=== PATIENT | female | born 1980 ===

== ENCOUNTER 2017-02-27 11:42 | Emergency (ER) | payer MEDICAID ==
--- NOTE | 2017-03-01 04:56 | OBHP ---
Datetime: 02/27/2017 13:00 IP Adm Impression: Postterm, intrauterine ; No Active Labor; Intact Membranes IP Admit Plan: Discharge home Admit Comment, IP Provider: 36 y.o. P0, LMP unsure, WILIAM 02/26/17, EGA 40w 1d, confirmed by sono at 12w 5d referred for evaluation. (+) AFM; denies LOF, VB, Ctx. Last had sexual intercourse 1 week ago. care = [facility] - ; last visit 02/26/17. issues. 1) advanced maternal ag e - declined aniocentesis. 2) Abnl 1 hr GCT = 172 mg/dL; per chart "3hr GTT normal". 3) (+) headaches - onset this . (+) eyewear; doesn't recall last eye exam. Didn't keep appt made for medical evaluation of same. 4) Chart review reveals intermittent feelings of depression/sadness; pt did not keep appt with behavioural health after requesting it. 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 Denies STIs or abnl Pap PMH: denies PSH: denies NKDA Meds: PNV Soc Hx: former tobacco use: 3 cig/day x 15 years; stopped in . Denies illicit drug or EtO H use. Relationship with FOB is on again/off again. Fam Hx: Mother alive 55 - no med issues. Father alive HTN; S/P CVA. Denies fam h/o cancer P.E.: as above. WD in NAD. Awake, alert, oriented to time, person and place. Pleasant and cooperat lauryn. Became a littly evasive when asked about the nature of relationship with FOB. Assessment: 36 yo P0, 40w 1d, not in labor. NST reactive; Category 1 tracing. Patient is scheduled for IOL 03/04/17. Has appointment 03/03. Clinically stable. Plan: 1) Discharge home 2) Reviewed S/S labor 3) Keep all scheduled appointments Pelvic Type - PN: Adequate Extremities - PN: Normal Abdomen - PN: Normal Back - PN: Normal Breast - PN: Not Done Lungs - PN: Normal Heart - PN: Normal Thyroid - PN: Not Done Neurologic - PN: Normal HEENT - PN: Normal General - PN: Normal Presentation-Admit: Vertex FHR - Baseline A Provider: 140 Contraction Comments Provider: none Comments, ACOG Physical Exam: Skin: warm, dry, intact HEENT: full ROM Lungs: CTA bilaterally Cardiac: RRR, normal S1, S2 Abdomen: Gravid. Soft. Fundal height 40 cm : no masses or discharge Extremities: no calf tenderness, cysnosis or edema All other systems reviewed and are negative Gestation - Est Wks by US: 40w 1d IP Hx Assessment: The History has been Reviewed and is Current EGA AdmitDate IP: 40.1 Vital Signs Provider: Reviewed IP Chief Complaint: evaluation NICHD Variability Prov Fetus A: Moderate 6-25bpm NICHD Accel Fetus A IP Provider: 15X15 FHR Category Provider Fetus A: Category I NICHD Decel Fetus A IP Provider: None Dilatation, Provider: 1 Effacement, Provider: 30 Station, Provider: -3 Genitourinary Exam: Normal DTRs - PN: Not Done
== END 2017-02-27 12:58 | disposition home or self-care (01) ==
LOC: C.EROB 11:42
DX: O48.0 Post-term pregnancy (principal); Z3A.40 40 weeks gestation of pregnancy

== ENCOUNTER 2017-03-01 05:13 | Inpatient (IN) | payer MEDICAID ==
[2017-03-01 06:21] VITALS: BMI 31.8
[2017-03-01] MEDS ORDERED: Lactated Ringer's 1,000 ML IV SCH (07:00)
--- NOTE | 2017-03-01 07:08 | OBADHP ---
Datetime: 03/01/2017 07:00 Admit Comment, IP Provider: chief complaint-contractions HPI 36 y/o at 40.3 wga with c/o contractions since the morning.Reports pain getting mile. Also c/o leaking of fluid. course issues. 1) advanced maternal age - declined aniocentesis. 2) Abnl [address] = 172 mg/dL; per chart "3hr GTT normal". 3) (+) headaches - onset this . (+) eyewear; west sn't recall last eye exam. Didn't keep appt made for medical evaluation of same. 4) Chart review rev eals intermittent feelings of depression/sadness; pt did not keep appt with behavioural health after requesting it. 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 Denies STIs or abnl Pap PMH: denies PSH: denies NKDA Meds: PNV Soc Hx: former tobacco use: 3 cig/day x 15 years; stopped in . Denies illicit drug or EtO H use. Relationship with FOB is on again/off again. Fam Hx: Mother alive 55 - no med issues. Father alive HTN; S/P CVA. Denies fam h/o cancer Physical exam see exam section A/P 36 y/o at 40.3 wga in labor.SROM.gbs negative -admit -see orders Pelvic Type - PN: Adequate Extremities - PN: Normal Abdomen - PN: Normal Back - PN: Normal Lungs - PN: Normal Heart - PN: Normal Neurologic - PN: Normal General - PN: Normal Weight - Estimated: 3200 Presentation-Admit: Vertex Amniotic Fluid Color, Provider: Clear Membranes, Provider: Ruptured Contraction Comments Provider: every 2 min Gestation - Est Wks by US: 40.3 Pool Provider: Positive Nitrazine Provider: Positive Ferning Provider: Positive IP Hx Assessment: The History has been Reviewed and is Current Vital Signs Provider: Reviewed; Within Normal Limits IP Chief Complaint: Uterine contractions FHR Category Provider Fetus A: Category I Dilatation, Provider: 4 Effacement, Provider: 80 Station, Provider: -2 Genitourinary Exam: Normal DTRs - PN: Normal EGA AdmitDate IP: 40.3 IP Adm Impression: Postterm, intrauterine ; Active labor; Ruptured Membranes IP Admit Plan: Admit to unit; Initiate labor protocol Datetime: 02/27/2017 13:00 Breast - PN: Not Done Thyroid - PN: Not Done HEENT - PN: Normal FHR - Baseline A Provider: 140 Comments, ACOG Physical Exam: Skin: warm, dry, intact HEENT: full ROM Lungs: CTA bilaterally Cardiac: RRR, normal S1, S2 Abdomen: Gravid. Soft. Fundal height 40 cm : no masses or discharge Extremities: no calf tenderness, cysnosis or edema All other systems reviewed and are negative NICHD Variability Prov Fetus A: Moderate 6-25bpm NICHD Accel Fetus A IP Provider: 15X15 NICHD Decel Fetus A IP Provider: None
[2017-03-01 07:16] LABS: HEMATOCRIT 37.3 % (34.0-47.0); MEAN CELL VOLUME 87.5 fL (81.0-99.0); MEAN CORPUSCULAR HEMOGLOBIN 29.5 pg (27.0-31.0); MEAN CORPUSCULAR HGB CONC 33.8 g/dL (33.0-37.0); MEAN PLATELET VOLUME 7.8 fL (7.2-11.7); RED CELL DISTRIBUTION WIDTH 13.9 % (11.5-14.5); WHITE BLOOD COUNT 11.5 K/uL (4.8-10.8)
[2017-03-01 07:24] LABS: CHLORIDE 100 mmol/L (98-107); RBC URINE 63 /hpf (0-3); URINE BACTERIA OCC (<OCC); URINE BILIRUBIN NEGATIVE (NEGATIVE); URINE BLOOD 3+ (NEGATIVE); URINE COLOR Yellow (YELLOW); URINE GLUCOSE (UA) NORMAL (Normal); URINE KETONE NEGATIVE (NEGATIVE); URINE LEUKOCYTE ESTERASE NEG Leu/uL (Negative); URINE PROTEIN NEGATIVE (NEGATIVE); URINE UROBILINOGEN NORMAL mg/dL (0.2-1.0); WBC URINE 2 /hpf (0-5)
[2017-03-01 07:25] LABS: POTASSIUM 3.6 mmol/L (3.6-5.2); SODIUM 134 mmol/L (132-148)
[2017-03-01 07:27] LABS: AST/SGOT 15 U/L (14-36); BILIRUBIN,TOTAL 0.3 mg/dL (0.2-1.3); CARBON DIOXIDE 19 mmol/L (22-30); GFR AFRICAN-AMERICAN > 60
[2017-03-01 07:28] LABS: ALB/GLOB RATIO 1.3 (1.0-2.1); ALKALINE PHOSPHATASE 120 U/L (38-126); ALT/SGPT 8 U/L (9-52); BLOOD UREA NITROGEN 9 mg/dL (7-17); CALCIUM 9.3 mg/dl (8.6-10.4); GLUCOSE,RANDOM 73 mg/dL (65-105); TOTAL PROTEIN 6.5 g/dL (6.3-8.3)
[2017-03-01] MEDS ORDERED: Bupivacaine 0.125%/FentaNYL 200 ML EPI ONE (07:30)
[2017-03-01] MEDS ORDERED: Lidocaine 2% Inj (20ml) ONE (08:40)
[2017-03-01] MEDS ORDERED: Oxytocin 30 UNIT 500 ML IV ONE (10:24)
[2017-03-01] MEDS ORDERED: Oxycodone/Acetaminophen 5/325 mg Tab PO PRN (11:55)
[2017-03-01] MEDS ORDERED: Benzocaine/Menthol 20%-0.5% Topical Spray (60 ml) TOP PRN (11:55)
[2017-03-01] MEDS ORDERED: Oxytocin 30 UNIT 1,000 ML IV SCH (12:00)
--- NOTE | 2017-03-01 12:39 | OBDS ---
DELIVERY PERSONNEL Delivery Doctor: Noman Banuelos MD Cigar Tobacco Rehandler: Delmar Leigh RN Anesthesiologist: Shruti Samson MD MATERNAL INFORMATION Delivery Anesthesia: Epidural Medications in Delivery: Pitocin 30 units in 500mls of LR Estimated Blood Loss (ml): 350 Placenta Cultured: No Maternal Complications: None RN Comments: noneventful nvsd of 40.3 weeks iup to a viable baby girl with apgars 9-9. skin-skin ini tiated after delivery. encouraged and initiated upon recovery. Provider Comments: Patient pushing.Right mediolateral episiotomy done after obtaining verbal consent from patient. of a female .Nuchalx1 around neck loose.Baby delivered through the nuchal.Bod y and shoulders delivered without difficulty.Cord clamped and cut.Cord blood collected.Placenta spont aneosuly delivered.Endometrium clean.Right mediolateral episiotomy repaired with 2-0 chromic.Patient stable.Fundus firm.APgars 9/9 at1 and 5 min of life. LABOR SUMMARY EDC: 02/26/2017 00:00 No. Babies in Womb: 0 Attempted: No Labor Anesthesia: Epidural LABOR INFORMATION Reason for Induction: Not Applicable Onset of Labor: 03/01/2017 05:00 Complete Dilatation: 03/01/2017 09:05 Group B Beta Strep: Negative Antibiotics # of Doses: 0 Steroids Given: None Reason Steroids Not Administered: Not Applicable MEMBRANES Membranes Rupture Method: Spontaneous Rupture of Membranes: 03/01/2017 04:20 Length of Rupture (hrs): 6.92 Amniotic Fluid Color: Clear Amniotic Fluid Amount: Small Amniotic Fluid Odor: Normal STAGES OF LABOR Stage 1 hrs: 4 Stage 1 min: 5 Stage 2 hrs: 2 Stage 2 min: 10 Stage 3 hrs: 0 Stage 3 min: 3 Total Time in Labor hrs: 6 Total Time in Labor min: 18 VAGINAL DELIVERY Episiotomy: Right Mediolateral Laceration Repair Note: right mediolateral episiotomy repaired with 2-0 chromic in layers Initial Vag Sponge Count: 10 Final Vag Sponge Count: 10 Initial Vag Sharps Count: 0 Final Vag Sharps Count: 1 Sponge Count Correct: Yes; Vaginal Sweep Performed Sharps Count Correct: Yes BABY A INFORMATION Infant Delivery Date/Time: 03/01/2017 11:15 Method of Delivery: Vaginal Born in Route : No : N/A Forceps: N/A Vacuum Extraction: N/A Shoulder Dystocia : No SHOULDER DYSTOCIA BABY A Delivery Date/Time: 03/01/2017 11:15 PRESENTATION/POSITION BABY A Presentation: Cephalic Cephalic Presentation: Vertex Vertex Position: Left Occipital Anterior Breech Presentation: N/A PLACENTA INFORMATION BABY A Placenta Delivery Time : 03/01/2017 11:18 Placenta Method of Delivery: Spontaneous Placenta Status: Delivered SCORES BABY A Heart Rate 1 min: >100 bpm Resp Effort 1 min: Good Cry Reflex Irritability 1 min: Cough or Sneeze or Pulls Away Muscle Tone 1 min: Active Motion Color 1 min: Body [place], Extremities Blue SCORE 1 MIN: 9 Heart Rate 5 min: >100 bpm Resp Effort 5 min: Good Cry Reflex Irritability 5 min: Cough or Sneeze or Pulls Away Muscle Tone 5 min: Active Motion Color 5 min: Body [place], Extremities Blue SCORE 5 MIN: 9 INFORMATION BABY A Gestational Age at Delivery: 40.3 Gestational Status: Post-term Infant Outcome : Liveborn Infant Condition : Stable Sex: Female IDENTIFICATION/MEDS BABY A ID Band Number: [id number] ID Band Location: Left Leg; Left Arm Sensor Applied: Yes Sensor Number: [id number] Sensor Location : Cord Clamp WEIGHT/LENGTH BABY A Infant Birthweight (gms): 3375 Weight (lb): 7 Infant Weight (oz): 7 Infant Length Inches: 19.50 Infant Length cms: 49.5 CORD INFORMATION BABY A No. Cord Vessels: 3 Nuchal Cord : Around Neck x1, Loose Nuchal Cord Other: loose cord around body True Knot: n/a Cord pH Baby Arterial: n/a Cord pH Baby Venous: n/a Cord Blood Taken: Yes Banking/Donate Info: n/a Suction: Mouth; Nose ASSESSMENT BABY A Complications: None Physical Findings at Delivery: Within Normal Limits; Molding of the Head Respirations: Appears Normal Digital Print Operator/ALS Called : No Infant Care By: Dr. Seo Transferred To: Remains with Mother
[2017-03-01 13:12] VITALS: O2SAT 98
--- NOTE | 2017-03-02 07:29 | OBPPN ---
Datetime: 03/02/2017 07:27 PP Pain Prov: Within normal limits PP Nausea Prov: Denies PP Flatus Prov: Yes PP Abdomen/Uterus Prov: Normal PP Lochia Prov: Normal PP Extremities Prov: Normal PP Comments Phys Exam Prov: fudus below umblicus ext no edema,no calf ten PP Impression Prov: Normal progression PP Plan Prov: Continue present management PP Progress Note Prov: pt was seen at bed side, pain under control, no n/v, tolerating deit,voiding, min lochia, flatus+ ppd#1 s/p pain management cont pp care encorage asmbulation cbc Vital Signs Provider PP: Reviewed; Within Normal Limits
[2017-03-02 07:53] LABS: BASO % 0.2 % (0.0-2.0); EOS # 0.1 K/uL (0.0-0.7); EOS % 0.6 % (0.0-4.0); HEMATOCRIT 31.7 % (34.0-47.0); LYMPH # 2.4 K/uL (1.0-4.3); LYMPH % 17.9 % (20.0-40.0); MEAN CELL VOLUME 87.7 fL (81.0-99.0); MEAN CORPUSCULAR HEMOGLOBIN 29.1 pg (27.0-31.0); MEAN CORPUSCULAR HGB CONC 33.2 g/dL (33.0-37.0); MEAN PLATELET VOLUME 7.5 fL (7.2-11.7); MONO % 7.5 % (0.0-10.0); RED CELL DISTRIBUTION WIDTH 13.9 % (11.5-14.5); WHITE BLOOD COUNT 13.4 K/uL (4.8-10.8)
[2017-03-02] MEDS: Multiple Vitamins Tab PO SCH (09:15)
[2017-03-03 00:20] VITALS: BP 113/72; PULSE 83; RESP 20; TEMP 97.1
--- NOTE | 2017-03-03 07:07 | OBPPN ---
Datetime: 03/03/2017 07:02 PP Pain Prov: Within normal limits PP Nausea Prov: Denies PP Flatus Prov: Yes PP BM Prov: No PP Heart Prov: Normal PP Lungs Prov: Normal PP Abdomen/Uterus Prov: Normal PP Lochia Prov: Normal PP Vulva/Perineum Prov: Normal PP CVA Tenderness Prov: Normal PP Extremities Prov: Normal PP C/S Incision Prov: Not Applicable PP Progress Prov: Normal PP Impression Prov: Normal progression PP Plan Prov: Discharge PP Progress Note Prov: S-patient reports adequate pain control.denies nausea, vomiting, headache, ch est pain, shortness of breath, numbness or tingling in hands and feet O-VSS afebrile Fundus firm and below umbilicus extremities no calf tenderness A/P Patient s/p vaginal delivery ppd 2 doing well -discharge today -continue vitamins -script for motrin given -follow up in clinic in 6 weeks Vital Signs Provider PP: Reviewed; Within Normal Limits
--- NOTE | 2017-03-03 07:11 | OBDCSUM ---
Datetime: 03/03/2017 07:08 Discharged to, Provider: Home Follow up at, Provider: ob clinic Disch Instr Diet: Regular Discharge Instructions, Provider: Routine instructions given Discharge Diagnosis, Provider: Term Delivered Discharge Time: 03/03/2017 07:08 Follow up in weeks, Provider: 1 week Disch Referrals: None Contraception discussed, Prov: Yes Disch Activity Restrictions: No exercising; No lifting; Minimize stair-climbing; No sexual activity; Nothing in vagina - [place], tampons, douche Discharge Comment, Provider: GO TO THE ER IF YOU HAVE FEVER, SEVERE PAIN, HEAVY BLEEDING OR ANY OTHE R PROBLEMS Discharge Diagnosis Prov Other: S/p vaginal delivery
[2017-03-03] MEDS: Multiple Vitamins Tab PO SCH (09:50)
== END 2017-03-03 11:50 | disposition home or self-care (01) | DRG 373 ==
LOC: C.EROB 05:13 → C.4D 06:51 → C.4M 12:55
PROVIDERS: ADMIT Student in an Organized Health Care Education/Training Program; ATTEND Student in an Organized Health Care Education/Training Program
PROC: 0W8NXZZ Division of Female Perineum, External Approach (ICD-10-PCS; principal; 2017-03-01)
PROC: 10E0XZZ Delivery of Products of Conception, External Approach (ICD-10-PCS; 2017-03-01)
DX: O48.0 Post-term pregnancy (principal); O99.344 Other mental disorders complicating childbirth; O69.81X0 Labor and delivery complicated by cord around neck, without compression, not applicable or unspecified; Z87.891 Personal history of nicotine dependence; Z3A.40 40 weeks gestation of pregnancy; Z37.0 Single live birth